=== PATIENT | female | born 1970 | race Caucasian/White ===

== ENCOUNTER 2017-11-02 09:20 | Outpatient (REF) | payer BC, SELFPAY ==
[2017-11-02 22:52] LABS: Abs Immature Grans 0.01 k/cumm (0.0-0.09); Absolute Basophil Count 0.03 k/cumm (0.0-0.2); Absolute Eosinophil Count 0.22 k/cumm (0.0-0.7); Absolute Lymphocyte Count 1.09 k/cumm (1.2-3.4); Absolute Monocyte Count 0.31 k/cumm (0.11-0.7); Absolute Neutrophil Count 2.35 k/cumm (1.2-6.7); Basophils % 0.7; Eosinophils % 5.5; HGB 13.2 g/dL (12.0-15.5); Immature Grans % 0.2; Lymphocytes % 27.2; Mean Corp. HGB Concentration 32.2 g/dL (32.0-36.0); Mean Corpuscular Hemoglobin 28.2 pg (27.0-33.0); Mean Corpuscular Volume 87.6 fL (80-95); Mean Platelet Volume 10.5 fL (8.0-11.0); Monocytes % 7.7; Neutrophils % 58.7; Platelet Count 271 x1000/uL (130-400); RBC 4.68 m/cumm (4.00-5.20); RBC Distribution Width 13.7 % (11.7-14.6); White Blood Cell Count 4.01 k/cumm (4.4-10.8)
[2017-11-02 23:15] LABS: ALT 12 U/L (12-78); AST 24 U/L (15-37); Albumin 3.8 g/dL (3.4-5.0); Alkaline Phosphatase 247 U/L (46-116); Anion Gap 5.9 mmol/L (3-11); BUN 7 mg/dL (7-18); Bilirubin, Total 0.3 mg/dL (0.2-1.0); CO2 29.1 mmol/L (21.0-32.0); CREATININE 0.79 mg/dL (0.55-1.02); Calcium 8.7 mg/dL (8.5-10.1); Chloride 104 mmol/L (98-107); Cholesterol 194 mg/dL (50-200); Glucose 83 mg/dL (70-100); HDL Cholesterol 40 mg/dL (40-60); LDL CHOLESTEROL 136 mg/dL (<100); Potassium 4.3 mmol/L (3.5-5.1); Sodium 139 mmol/L (136-145); Total Protein 7.2 g/dL (6.4-8.2); Triglyceride 153 mg/dL (30-150)
[2017-11-02 23:31] LABS: ESR 11 MM/HR (0-20)
== END 2017-11-02 09:40 ==
LOC: NCHCN 09:20
PROVIDERS: PCP Internal Medicine; Visit Provider Family Medicine
DX: I10 Essential (primary) hypertension (principal); E66.9 Obesity, unspecified; R19.00 Intra-abdominal and pelvic swelling, mass and lump, unspecified site
CPT/HCPCS: 80053; 80061; 83721; 85652; 85025

== ENCOUNTER 2017-12-08 22:29 | Outpatient (REF) | payer BC, SELFPAY ==
[2017-12-08 22:56] LABS: Chloride 100 mmol/L (98-107); Potassium 4.3 mmol/L (3.5-5.1); Sodium 138 mmol/L (136-145)
== END 2017-12-08 22:49 ==
LOC: NCHCN 22:29
PROVIDERS: PCP Internal Medicine; Visit Provider Family Medicine
DX: I10 Essential (primary) hypertension (principal)
CPT/HCPCS: 80051

== ENCOUNTER 2018-12-26 17:01 | Outpatient (REF) | payer BC, SELFPAY ==
[2018-12-26 21:43] LABS: Anion Gap 8.3 mmol/L (3-11); BUN 9 mg/dL (7-18); CO2 28.7 mmol/L (21.0-32.0); CREATININE 0.68 mg/dL (0.55-1.02); Calcium 8.7 mg/dL (8.5-10.1); Chloride 101 mmol/L (98-107); Glucose 84 mg/dL (70-100); Potassium 3.6 mmol/L (3.5-5.1); Sodium 138 mmol/L (136-145)
== END 2018-12-26 17:21 ==
LOC: NCHCN 17:01
PROVIDERS: PCP Internal Medicine; Visit Provider Family Medicine
DX: I10 Essential (primary) hypertension (principal)
CPT/HCPCS: 80048

== ENCOUNTER 2019-09-20 12:37 | Outpatient (REF) | payer BC, SELFPAY ==
[2019-09-20 21:35] LABS: TSH 2.66 uIU/mL (0.36-3.74)
== END 2019-09-20 12:57 ==
LOC: NCHCN 12:37
PROVIDERS: PCP Internal Medicine; Visit Provider Registered Nurse
DX: E04.9 Nontoxic goiter, unspecified (principal)
CPT/HCPCS: 84443

== ENCOUNTER 2019-12-11 15:54 | Outpatient (REF) | payer BC, SELFPAY ==
[2019-12-11 23:05] LABS: Anion Gap 7.1 mmol/L (3-11); BUN 9 mg/dL (7-18); CO2 30.9 mmol/L (21.0-32.0); CREATININE 0.59 mg/dL (0.55-1.02); Calcium 8.9 mg/dL (8.5-10.1); Calculated LDL 113 mg/dL (<100); Chloride 99 mmol/L (98-107); Cholesterol 179 mg/dL (<200); Glucose 82 mg/dL (74-106); HDL Cholesterol 37 mg/dL (40-60); Potassium 4.1 mmol/L (3.5-5.1); Sodium 137 mmol/L (136-145); Triglyceride 148 mg/dL (<150)
== END 2019-12-11 16:14 ==
LOC: NCHCN 15:54
PROVIDERS: PCP Internal Medicine; Visit Provider Registered Nurse
DX: Z00.00 Encounter for general adult medical examination without abnormal findings (principal); I10 Essential (primary) hypertension; E04.1 Nontoxic single thyroid nodule; H61.23 Impacted cerumen, bilateral
CPT/HCPCS: 80048; 80061

== ENCOUNTER 2020-12-04 21:15 | Outpatient (REF) | payer BC, SELFPAY ==
[2020-12-04 22:12] LABS: Hemoglobin A1C 5.6 % (<5.7)
[2020-12-04 22:20] LABS: Anion Gap 6.7 mmol/L (3-11); BUN 11 mg/dL (7-18); CO2 30.3 mmol/L (21.0-32.0); CREATININE 0.7 mg/dL (0.55-1.02); Chloride 101 mmol/L (98-107); Glucose 78 mg/dL (74-106); Sodium 138 mmol/L (136-145); TSH 1.99 uIU/mL (0.36-3.74)
== END 2020-12-04 21:16 | disposition home or self-care (01) ==
LOC: NCHCN 21:15
PROVIDERS: PCP Internal Medicine; Visit Provider Registered Nurse
DX: I10 Essential (primary) hypertension (principal); E04.1 Nontoxic single thyroid nodule; E66.9 Obesity, unspecified
CPT/HCPCS: 80048; 83036; 84443